=== PATIENT | male | born 1995 | race Caucasian/White ===

== ENCOUNTER 2016-11-27 11:20 | Emergency (ER) | payer OTHER ==
[~2016-11-27] VITALS: Ht 185.4 cm; Wt 61.7 kg
[~2016-11-27 11:20] MED LIST: AMOXICILLIN500 MG PO; AUGMENTIN 875875 MG PO; CLARITIN10 MG PO; DAYTRANA10 MG/9 HR TD; DEPAKOTE250 MG PO; DEPAKOTE500 MG PO; IBU800 MG PO; KETOROLAC10 MG PO; MECLIZINE12.5 MG PO; MOTRIN400 MG PO; NKHM; PEPCID20 MG PO; PREDNISONE20 MG PO; PROVENTIL0.09 MG/AC IH; TESSALON PERLE100 M1 PO; ZITHROMAX Z PA250 MG PO; ZYRTEC10 M2 PO
[2016-11-27 11:24] VITALS: BP 131/79
[2016-11-27] MEDS ORDERED: PREDNISONE10 MG PO (12:27)
== END 2016-11-27 12:35 | disposition home or self-care (01) ==
LOC: ED 11:20
DX: B34.9 Viral infection, unspecified (principal); R03.0 Elevated blood-pressure reading, without diagnosis of hypertension; F90.9 Attention-deficit hyperactivity disorder, unspecified type; F41.9 Anxiety disorder, unspecified; F32.9 Major depressive disorder, single episode, unspecified; F12.10 Cannabis abuse, uncomplicated; F17.200 Nicotine dependence, unspecified, uncomplicated; Z88.8 Allergy status to other drugs, medicaments and biological substances

== ENCOUNTER 2024-05-31 14:20 | Emergency (ER) | payer OTHER ==
[~2024-05-31] VITALS: Ht 180.3 cm; Wt 45.4 kg
[~2024-05-31 14:20] MED LIST changes: +PREDNISONE10 MG PO
[2024-05-31 14:54] LABS: BASO # 0.1 10*3/uL (0.0-0.1); BASO % 1.1 % (0.0-1.0); EOS # 0.1 10*3/uL (0.0-0.4); EOS % 0.9 % (1.0-4.0); HEMATOCRIT 41.7 % (42.0-52.0); LYMPH # 1.9 10*3/uL (1.3-4.4); LYMPH % 21.5 % (27.0-41.0); MEAN CELL VOLUME 95.2 fl (80.0-94.0); MEAN CORPUSCULAR HGB 31.7 pg (27.0-31.0); MEAN CORPUSCULAR HGB CONC 33.3 g/dl (33.0-37.0); MEAN PLATELET VOLUME 8.8 fl (9.6-12.3); MONO # 0.4 10*3/uL (0.1-1.0); MONO % 4.7 % (3.0-9.0); NEUT # 6.4 10*3/uL (2.3-7.9); NEUT % 71.5 % (47.0-73.0); PLATELET COUNT AUTOMATED 252 10*3/uL (130-400); RED BLOOD COUNT 4.38 10*6/uL (4.50-5.90); RED CELL DISTRI WIDTH 13.7 % (0-14.5)
[2024-05-31] MEDS ORDERED: KEPPRA500 MG PO (15:32)
[2024-05-31 15:49] LABS: ALKALINE PHOSPHATASE 81 U/L (46-116); BUN 14 mg/dl (9-23); CHLORIDE 105 mmol/L (98-107); ETHYL ALCOHOL < 3.0 mg/dl (<3); SGPT/ALT 28 U/L (5-49); TOTAL PROTEIN 7.3 gm/dL (6.0-8.0)
== END 2024-05-31 16:13 | disposition home or self-care (01) ==
LOC: ED
PROVIDERS: Emergency Medicine
DX: R56.9 Unspecified convulsions (principal); F19.90 Other psychoactive substance use, unspecified, uncomplicated; Z88.8 Allergy status to other drugs, medicaments and biological substances; F90.9 Attention-deficit hyperactivity disorder, unspecified type; F41.9 Anxiety disorder, unspecified; F32.A Depression, unspecified; E83.51 Hypocalcemia; F12.10 Cannabis abuse, uncomplicated; F10.10 Alcohol abuse, uncomplicated; F17.200 Nicotine dependence, unspecified, uncomplicated

== ENCOUNTER 2025-01-01 00:06 | Emergency (ER) | payer OTHER ==
[~2025-01-01] VITALS: Ht 170.1 cm; Wt 61.2 kg
[~2025-01-01 00:06] MED LIST changes: +KEPPRA500 MG PO
[2025-01-01 00:25] VITALS: BP 113/70
== END 2025-01-01 01:57 | disposition home or self-care (01) ==
LOC: ED 00:06
DX: J10.1 Influenza due to other identified influenza virus with other respiratory manifestations (principal); Z20.822 Contact with and (suspected) exposure to COVID-19; F90.9 Attention-deficit hyperactivity disorder, unspecified type; F12.10 Cannabis abuse, uncomplicated; F10.10 Alcohol abuse, uncomplicated; F17.200 Nicotine dependence, unspecified, uncomplicated; Z88.8 Allergy status to other drugs, medicaments and biological substances